=== PATIENT | male | born 1955 ===

== ENCOUNTER 2016-06-06 12:10 | Emergency (ER) | payer OTHER ==
[2016-06-06 12:14] VITALS: BP 143/75; PULSE 89; RESP 14; TEMP 97.7; O2SAT 95
[2016-06-06] MEDS ORDERED: IBUPROFEN 600 MG TAB PO ONE ×2 (12:36→12:38)
--- NOTE | 2016-06-06 12:40 | EDPHY ---
H & P Stated Complaint: L hand injury Time Seen by Provider: 06/06/16 12:39 - Personal History Current Tetanus/Diphtheria Vaccine: Unsure Current Tetanus Diphtheria and Acellular Pertussis (TDAP): Unsure - Medical/Surgical History Hx Asthma: No Hx Chronic Respiratory Disease: No Hx Diabetes: No Hx Cardiac Disease: No Hx Renal Disease: No Hx Cirrhosis: No Hx Alcoholism: No Hx HIV/AIDS: No Hx Splenectomy or Spleen Trauma: No - Social History Smoking Status: Current every day smoker Constitutional: Initial Vital Signs Temperature (C) 36.5 C 06/06/16 12:12 Heart Rate 89 06/06/16 12:12 Respiratory Rate 14 06/06/16 12:12 Blood Pressure 143/75 H 06/06/16 12:12 O2 Sat (%) 95 06/06/16 12:12 O2 Delivery Mode Room Air Allergies/Adverse Reactions: No Known Allergies Allergy (Unverified 06/06/16 12:14) Medical Decision Making ED Course/Re-evaluation: CHIEF COMPLAINT: Motor fell on left hand. HISTORY OF PRESENT ILLNESS: The patient is a 60-year-old male who presents after a small metal motor fell on his hand just prior to arrival. the motor fell approximately a foot. He iced his hand immediately. He has full range of motion in his hand. He denies numbness or weakness or other complaints. REVIEW OF SYSTEMS: A 10 point review of systems was performed and is negative with the exception of the elements mentioned in the history of present illness. PHYSICAL EXAM: HR, BP, O2 Sat, RR. Temp noted General Appearance: Alert, well hydrated, appropriate, and non-toxic appearing. Head: Atraumatic without scalp tenderness or obvious injury Eyes: Pupils equal, round, reactive to light and accommodation, EOMI, no trauma , no injection. Ears: Clear bilaterally, no perforation, normal landmarks Nose: Atraumatic, no rhinorrhea, clear. Throat: There is no erythema or exudates, no lesions, normal tonsils, mucus membranes moist. Neck: Supple, 2+ carotid upstroke, nontender, no lymphadenopathy. Respiratory: No retractions, no distress, no wheezes, and no accessory muscle use. Lungs are clear to auscultation bilaterally. Cardiovascular: Regular rate and rhythm, no murmurs, rubs, or gallops. Bilateral carotid, radial, dorsalis pedis, and posterior tibial pulses intact. Good capillary refill all extremities. Gastrointestinal: Abdomen is soft, nontender, non-distended, no masses, no rebound, no guarding, no peritoneal signs. Musculoskeletal: Abrasion and ecchymosis over PIP left ring finger. Normal active ROM of all extremities. Neurological: Alert, appropriate, and interactive. The patient has normal DTRs and non-focal cranial nerves, motor, sensory, and cerebellar exam. Skin: No rashes, good turgor, no nodules on palpation. Past medical history:Denies. Past surgical history:Non-contributory. Family history:Non-contributory. Social history:Here alone. DIFFERENTIAL DIAGNOSIS: The differential diagnosis includes but is not limited to: abrasion, contusion, fracture, sprain, strain. MEDICAL DECISION MAKING: The patient presents after a motor fell on his hand just prior to arrival. He reports the motor was small and fell maybe a foot. He believes it landed on his ring. He does have a small abrasion over the PIP joint but full range of motion in all of his fingers. He denies numbness or weakness. He reports that the pain subsided with Ibuprofen and Ice. I do not believe he needs an x-ray. He will be discharged with Ibuprofen and ice instructions. He is comfortable with the plan. I answered all of his questions. - Data Points Medications Given: Discontinued Medications Ibuprofen (Motrin) 600 mg PO EDNOW ONE Stop: 06/06/16 12:39 Last Admin: 06/06/16 12:39 Dose: 600 mg Departure - Departure Disposition: Home, Routine, Self-Care Clinical Impression: Finger contusion Qualifiers: Encounter type: initial encounter Finger: ring finger Damage to nail status: with damage Laterality: left Qualifier Code: (S60.142A) Contusion of left ring finger with damage to nail, initial encounter Finger abrasion Qualifiers: Encounter type: initial encounter Qualifier Code: (S60.419A) Abrasion of unspecified finger, initial encounter Condition: Good Instructions: Contusion in Adults (ED) Additional Instructions: Take 600mg Ibuprofen every 6-8 hours for pain. Ice affected area for pain. Return to the emergency department if you experience serious worsening of condition. Report Scribed for: Jensen Bartholomew Report Scribed by: Sebas Cardoso Date of Report: 06/06/16 Time of Report: 12:43
== END 2016-06-06 12:49 | disposition home or self-care (01) ==
DX: S60.142A Contusion of left ring finger with damage to nail, initial encounter (principal); S60.415A Abrasion of left ring finger, initial encounter; F17.200 Nicotine dependence, unspecified, uncomplicated; W20.8XXA Other cause of strike by thrown, projected or falling object, initial encounter